=== PATIENT | female | born 1995 | race Caucasian/White ===

== ENCOUNTER 2023-06-29 20:14 | Emergency (ER) | payer MEDICAID, OTHER ==
[~2023-06-29] VITALS: Ht 139.7 cm; Wt 70.0 kg
[2023-06-29 20:26] VITALS: BP 120/57; RESP 18; TEMP 99.5; O2SAT 97
[2023-06-29 20:28] VITALS: PULSE 106
[2023-06-29] MEDS ORDERED: ACETAMINOPHEN 325MG TABLET PO ONE (20:45)
[2023-06-29] MEDS ORDERED: MAGNESIUM/ALUMINUM HYDROXIDE/SIMETHICONE 30ML UDC PO ONE (20:45)
[2023-06-29] MEDS ORDERED: ONDANSETRON 4MG ODT PO ONE (20:45)
[2023-06-29 21:20] LABS: BASOPHILS % 0.7 % (0.0-2.0); EOSINOPHILS % 3.8 % (0.0-5.0); HEMATOCRIT. 37.9 % (36.0-48.0); HEMOGLOBIN. 12.8 g/dL (12.0-16.0); MEAN CORPUSCULAR HEMOGLOBIN 28.2 pg (28.0-32.0); MEAN CORPUSCULAR HGB CONC 33.8 g/dL (31.0-37.0); MEAN CORPUSCULAR VOLUME 83.6 fL (81.0-99.0); MEAN PLATELET VOLUME 8.2 fl (7.4-10.4); MONOCYTES % 5.1 % (2.0-8.0); NEUTROPHILS % 44.4 % (40.0-76.0); PLATELET 264 x1000/uL (130-400); RED BLOOD CELL COUNT 4.54 mill/uL (4.2-5.4); WHITE BLOOD COUNT 7.6 x1000/uL (4.5-11.0)
[2023-06-29 21:33] LABS: CHLORIDE 105 mEq/L (98-107); INDEX HEMOLYSI 2 (1-3); INDEX ICTERIC 1 (1-4); INDEX LIPEMIC 2 (1-3); POTASSIUM 3.8 mEq/L (3.5-5.1); SODIUM 138 mEq/L (136-145)
[2023-06-29 21:41] LABS: ALANINE AMINOTRANSFERASE 50 IU/L (13-61); ALBUMIN 3.9 g/dL (3.4-5.0); ASPARTATE AMINOTRANSFERASE 37 IU/L (15-37); BILIRUBIN TOTAL 0.4 mg/dL (0.1-1.0); CALCIUM 9.6 mg/dL (8.5-10.1); CARBON DIOXIDE 26 mEq/L (21-32); CREATININE 0.6 mg/dL (0.6-1.3); GLUCOSE 195 mg/dL (70-105); PROTEIN TOTAL 7.7 g/dL (6.0-8.3); UREA NITROGEN BLOOD 9 mg/dL (7-21)
[2023-06-29 22:35] LABS: CLARITY URINE TURBID (CLEAR); COLOR URINE YELLOW (YELLOW); GLUCOSE URINE NEGATIVE (NEGATIVE); KETONES URINE TRACE (NEGATIVE); LEUKOCYTE ESTERASE URINE 3+ (NEGATIVE); NITRITE URINE NEGATIVE (NEGATIVE); OCCULT BLOOD URINE 1+ (NEGATIVE); PROTEIN URINE 1+ (NEGATIVE); SPECIFIC GRAVITY URINE 1.025 (1.005-1.030)
[2023-06-29 23:14] LABS: BACTERIA URINE 4+; SQUAMOUS EPITHELIAL CELL URINE 2+ /lpf (RARE/1+)
[2023-06-29 23:15] LABS: WBC URINE 25-50 /hpf (0-2)
[2023-06-29] MEDS ORDERED: ACETAMINOPHEN 325MG TABLET PO NR (23:45)
[2023-06-29] MEDS ORDERED: MAGNESIUM/ALUMINUM HYDROXIDE/SIMETHICONE 30ML UDC PO NR (23:45)
[2023-06-29] MEDS ORDERED: ONDANSETRON 4MG ODT PO NR (23:45)
[2023-06-30] MEDS ORDERED: CEPH500C2 MT (00:17)
[2023-06-30] MEDS ORDERED: ONDA4TAB50 MT (00:17)
[2023-06-30] MEDS ORDERED: CEPHALEXIN 250MG CAPSULE PO ONE (00:30)
== END 2023-06-30 00:34 | disposition home or self-care (01) ==
LOC: ER 20:50
DX: N39.0 Urinary tract infection, site not specified (principal); R11.2 Nausea with vomiting, unspecified; E11.9 Type 2 diabetes mellitus without complications; F41.9 Anxiety disorder, unspecified
CPT/HCPCS: 99284; 74176; 80053; 81003; 81025; 85025; 87086; 36415; Q0162

== ENCOUNTER 2024-12-27 15:11 | Inpatient (IN) | payer OTHER ==
[~2024-12-27] VITALS: Ht 139.7 cm; Wt 70.8 kg
[~2024-12-27 15:11] MED LIST: CEPH500C2 MT; ONDA4TAB50 MT
[2024-12-27 16:57] LABS: BASOPHILS % 0.5 % (0.0-2.0); EOSINOPHILS % 2.9 % (0.0-5.0); HEMATOCRIT. 41.2 % (36.0-48.0); HEMOGLOBIN. 13.1 g/dL (12.0-16.0); LYMPHOCYTES % 41.7 % (20.0-50.0); MEAN CORPUSCULAR HEMOGLOBIN 26.4 pg (28.0-32.0); MEAN CORPUSCULAR HGB CONC 31.8 g/dL (31.0-37.0); MEAN CORPUSCULAR VOLUME 82.9 fL (81.0-99.0); MEAN PLATELET VOLUME 7.8 fl (7.4-10.4); NEUTROPHILS % 51.9 % (40.0-76.0); PLATELET 272 x1000/uL (130-400); RED BLOOD CELL COUNT 4.97 mill/uL (4.2-5.4); RED CELL DISTRIBUTION WIDTH 14.7 % (11.6-14.6); WHITE BLOOD COUNT 7.9 x1000/uL (4.5-11.0)
[2024-12-27 17:05] LABS: PARTIAL THROMBOPLASTIN TIME 28.6 sec (23.4-31.0); PROTHROMBIN TIME 10.3 sec (9.6-11.0)
[2024-12-27 17:06] LABS: CHLORIDE 101 mEq/L (98-107); POTASSIUM 3.9 mEq/L (3.5-5.1); SODIUM 136 mEq/L (136-145)
[2024-12-27] MEDS: VALPROIC ACID 250MG CAPSULE PO ONE (17:06)
[2024-12-27] MEDS: DEXAMETHASONE 4MG/ML 1ML VIAL IV ONE (17:06)
[2024-12-27 17:07] LABS: CALCIUM 9.7 mg/dL (8.7-10.4); CARBON DIOXIDE 25 mEq/L (21-32)
[2024-12-27] MEDS: DIPHENHYDRAMINE 50MG/ML VIAL IV ONE (17:08)
[2024-12-27] MEDS: METOCLOPRAMIDE HCL 10MG/2ML VIAL IV ONE (17:11)
[2024-12-27 17:12] LABS: CREATININE 0.8 mg/dL (0.6-1.0); GLUCOSE 110 mg/dL (70-105); UREA NITROGEN BLOOD 10 mg/dL (9-23)
[2024-12-27 17:13] LABS: ALBUMIN 4.6 g/dL (3.2-4.8)
[2024-12-27 17:14] LABS: ALANINE AMINOTRANSFERASE 19 IU/L (10-49); ASPARTATE AMINOTRANSFERASE 18 IU/L (<34); BILIRUBIN TOTAL 0.5 mg/dL (0.1-1.0); PROTEIN TOTAL 7.5 g/dL (6.0-8.3)
[2024-12-27 17:15] LABS: BILIRUBIN DIRECT < 0.1 mg/dL (<=3.0); TROPONIN I HIGH SENSITIVITY < 4 ng/L (3.0-34)
[2024-12-27 17:28] LABS: HCG SCREEN NEGATIVE
[2024-12-27] MEDS: MAGNESIUM 2 G PREMIX 50 ML IV ONE (17:31)
[2024-12-27] MEDS ORDERED: IPRATROPIUM/ALBUTEROL 0.5-3(2.5)MG/3ML NEB NEB PRN (20:00)
[2024-12-27] MEDS ORDERED: ONDANSETRON HCL 4MG/2ML INJ IV PRN (20:00)
[2024-12-27] MEDS ORDERED: ZOLPIDEM TARTRATE 5MG TABLET PO PRN (20:00)
[2024-12-27] MEDS ORDERED: MORPHINE SULFATE 2 MG/ML INJ (NOT FOR IM USE) IV PRN (20:00)
[2024-12-27] MEDS ORDERED: CLONIDINE 0.1MG TABLET PO PRN (20:00)
[2024-12-27] MEDS ORDERED: IOHEXOL-350 100 ML BOTTLE ONE (23:59)
[2024-12-28] MEDS ORDERED: DEXTROSE 50% WATER 50ML SYRINGE IV PRN (00:15)
[2024-12-28 00:51] VITALS: BP 105/63; PULSE 83; RESP 16; TEMP 36.3
[2024-12-28] MEDS ORDERED: ESTR2TAB6 (02:49)
[2024-12-28] MEDS ORDERED: ALOG25TA2 (02:49)
[2024-12-28 04:55] LABS: CLARITY URINE CLEAR (CLEAR); COLOR URINE YELLOW (YELLOW); GLUCOSE URINE NEGATIVE (NEGATIVE); KETONES URINE 1+ (NEGATIVE); LEUKOCYTE ESTERASE URINE NEGATIVE (NEGATIVE); NITRITE URINE NEGATIVE (NEGATIVE); OCCULT BLOOD URINE NEGATIVE (NEGATIVE); PH URINE 5.5 (4.5-8.0); PROTEIN URINE NEGATIVE (NEGATIVE); SPECIFIC GRAVITY URINE 1.086 (1.005-1.030); UROBILINOGEN URINE 0.2 E.U./dL (0.2-1.0)
[2024-12-28 05:17] LABS: *AMPHETAMINES SCREEN URINE NEGATIVE (NEGATIVE); *BARBITURATES SCREEN URINE NEGATIVE (NEGATIVE); *BENZODIAZEPINES SCREEN URINE NEGATIVE (NEGATIVE); *COCAINE SCREEN URINE NEGATIVE (NEGATIVE); CANNABINOID URINE SCREEN NEGATIVE (NEGATIVE); ECSTASY MDMA SCREEN URINE NEGATIVE (NEGATIVE); METHADONE URINE SCREEN NEGATIVE (NEGATIVE); OPIATES URINE SCREEN NEGATIVE (NEGATIVE); PHENCYCLIDINE URINE SCREEN NEGATIVE (NEGATIVE)
[2024-12-28] MEDS: ACETAMINOPHEN 325MG TABLET PO PRN (06:21)
[2024-12-28 07:12] LABS: BASOPHILS % 0.2 % (0.0-2.0); HEMATOCRIT. 39.8 % (36.0-48.0); HEMOGLOBIN. 13.3 g/dL (12.0-16.0); LYMPHOCYTES % 16.8 % (20.0-50.0); MEAN CORPUSCULAR HEMOGLOBIN 28.2 pg (28.0-32.0); MEAN CORPUSCULAR HGB CONC 33.5 g/dL (31.0-37.0); MEAN CORPUSCULAR VOLUME 84.1 fL (81.0-99.0); MEAN PLATELET VOLUME 8.2 fl (7.4-10.4); MONOCYTES % 1.1 % (2.0-8.0); NEUTROPHILS % 81.9 % (40.0-76.0); PLATELET 283 x1000/uL (130-400); RED BLOOD CELL COUNT 4.74 mill/uL (4.2-5.4); RED CELL DISTRIBUTION WIDTH 14.5 % (11.6-14.6); WHITE BLOOD COUNT 10.5 x1000/uL (4.5-11.0)
[2024-12-28 07:14] LABS: CHLORIDE 105 mEq/L (98-107); POTASSIUM 4.4 mEq/L (3.5-5.1)
[2024-12-28 07:15] LABS: CARBON DIOXIDE 21 mEq/L (21-32); SODIUM 136 mEq/L (136-145)
[2024-12-28 07:16] LABS: CALCIUM 9.9 mg/dL (8.7-10.4)
[2024-12-28 07:20] LABS: CREATININE 0.7 mg/dL (0.6-1.0)
[2024-12-28 07:21] LABS: GLUCOSE 196 mg/dL (70-105); UREA NITROGEN BLOOD 12 mg/dL (9-23)
[2024-12-28 07:25] LABS: TROPONIN I HIGH SENSITIVITY < 4 ng/L (3.0-34)
[2024-12-28 07:26] LABS: HEPATITIS B SURFACE ANTIGEN NEGATIVE (Negative)
[2024-12-28] MEDS: BLOOD SUGAR DIAGNOSTIC STRIP TEST SCH (07:38)
[2024-12-28 07:47] LABS: HEPATITIS C AB NON REACTIVE (Neg) (Negative)
[2024-12-28 08:00] VITALS: BP 99/61; PULSE 85; RESP 16; TEMP 36.6; O2SAT 98
[2024-12-28] MEDS: PANTOPRAZOLE SODIUM 40 MG/VIAL IV SCH (08:59)
[2024-12-28] MEDS: ENOXAPARIN 40MG/0.4ML SYR SUBCUT SCH (08:59)
[2024-12-28] MEDS: ASPIRIN 81MG TABLET PO SCH (08:59)
[2024-12-28] MEDS: INSULIN LISPRO 100 UNITS/ML SUBCUT SCH (09:02)
[2024-12-28 12:00] VITALS: BP 97/61; PULSE 84; RESP 18; TEMP 36.4; O2SAT 96
[2024-12-28 16:00] VITALS: BP 119/74; PULSE 88; RESP 20; TEMP 36.4; O2SAT 97
[2024-12-28] MEDS ORDERED: NALOXONE HCL 0.4MG/ML VIAL IV PRN (17:30)
[2024-12-28 20:00] VITALS: BP 94/58; PULSE 61; RESP 17; TEMP 36.4; O2SAT 98
[2024-12-28] MEDS ORDERED: ATORVASTATIN CALCIUM 40MG TABLET PO SCH (21:00)
[2024-12-28] MEDS: ATORVASTATIN CALCIUM 40MG TABLET PO SCH (21:22)
[2024-12-28] MEDS: HYDROCODONE/ACETAMINOPHEN 5/325MG TABLET PO PRN (22:46)
[2024-12-29] VITALS: BP 96/61; PULSE 76; RESP 16; TEMP 36.4; O2SAT 97
[2024-12-29 04:00] VITALS: BP 101/71; PULSE 73; RESP 18; TEMP 36.6; O2SAT 98
[2024-12-29 06:45] LABS: BASOPHILS % 0.4 % (0.0-2.0); EOSINOPHILS % 0.7 % (0.0-5.0); HEMATOCRIT. 35.3 % (36.0-48.0); HEMOGLOBIN. 11.8 g/dL (12.0-16.0); LYMPHOCYTES % 41.1 % (20.0-50.0); MEAN CORPUSCULAR HEMOGLOBIN 27.6 pg (28.0-32.0); MEAN CORPUSCULAR HGB CONC 33.4 g/dL (31.0-37.0); MEAN CORPUSCULAR VOLUME 82.7 fL (81.0-99.0); MEAN PLATELET VOLUME 8.4 fl (7.4-10.4); MONOCYTES % 3.9 % (2.0-8.0); NEUTROPHILS % 53.9 % (40.0-76.0); PLATELET 265 x1000/uL (130-400); RED BLOOD CELL COUNT 4.27 mill/uL (4.2-5.4); RED CELL DISTRIBUTION WIDTH 14.3 % (11.6-14.6); WHITE BLOOD COUNT 11.1 x1000/uL (4.5-11.0)
[2024-12-29 06:58] LABS: CARBON DIOXIDE 25 mEq/L (21-32); CHLORIDE 105 mEq/L (98-107); POTASSIUM 4.1 mEq/L (3.5-5.1); SODIUM 139 mEq/L (136-145)
[2024-12-29 07:00] LABS: CALCIUM 9.5 mg/dL (8.7-10.4)
[2024-12-29 07:03] LABS: CREATININE 0.7 mg/dL (0.6-1.0)
[2024-12-29 07:04] LABS: GLUCOSE 162 mg/dL (70-105); UREA NITROGEN BLOOD 15 mg/dL (9-23)
[2024-12-29 08:00] VITALS: BP 90/52; PULSE 76; RESP 18; TEMP 36.3; O2SAT 97
[2024-12-29] MEDS: CLOPIDOGREL 75MG TABLET PO SCH (09:14)
[2024-12-29] MEDS ORDERED: ASPI-1160 PO (11:17)
[2024-12-29] MEDS ORDERED: LIP40 PO (11:17)
[2024-12-29 12:00] VITALS: BP 97/48; PULSE 70; RESP 19; TEMP 36.3; O2SAT 97
[2024-12-29 12:23] VITALS: BP 97/48; PULSE 70; TEMP 97.3; O2SAT 97
== END 2024-12-29 14:11 | disposition home or self-care (01) | DRG 54 ==
LOC: ER 15:11 → EDBEDREQ 18:19 → EDBEDREQTM 18:19 → 6WST 22:25
PROVIDERS: ADMIT Internal Medicine; ATTEND Internal Medicine
DX: G43.109 Migraine with aura, not intractable, without status migrainosus (principal); G93.89 Other specified disorders of brain; G45.9 Transient cerebral ischemic attack, unspecified; Q04.4 Septo-optic dysplasia of brain; E11.9 Type 2 diabetes mellitus without complications; F41.9 Anxiety disorder, unspecified; Z86.73 Personal history of transient ischemic attack (TIA), and cerebral infarction without residual deficits; Z99.3 Dependence on wheelchair; Z88.6 Allergy status to analgesic agent
CPT/HCPCS: 36415; 70496; 70498; 70551; 71045; 80048; 80061; 80076; 80305; 81003; 82962; 83036; 84484; 84703; 85025; 85651; 86705; 86850; 86900; 87340; 93005; 93970; 99291; J1100; J1200; J1650; J1815; J2470; J2765; J3475; Q9967